=== PATIENT | male | born 1940 | race Asian ===

== ENCOUNTER 2022-12-24 13:01 | Inpatient (IN) | payer OTHER, MEDICAID ==
[~2022-12-24] VITALS: Ht 167.6 cm; Wt 45.4 kg
[~2022-12-24 13:01] MED LIST: ACET325T39 GT; AMIN30LI51 GT; AMLO5TAB4 GT; APIX2.5T GT; ASCO500S10 GT; CHLO118M PO; DIGO125T20 GT; FERR220S5 GT; HYDR-3919 GT; HYDR-4037 GT; IPRA3AMP9 INH; LACTIN GT; LANS30CA53 GT; LORA-259 GT; METO25TA6 GT; MIDO10TA6 GT; MULT9LIQ6 GT; ONDA4TAB5 GT; PYRI-7 GT; RIFA300C9 GT; VERA40TA5 GT; ZINC220T4 GT; [UNRECOGNIZED DRUG - CODE] GT
[2022-12-24 13:05] VITALS: BP_SYST 72
[2022-12-24] MEDS ORDERED: NACL 0.9% 2,000 ML IV SCH (13:15)
[2022-12-24] MEDS ORDERED: PANTOPRAZOLE SODIUM 40 MG/VIAL (PROTONIX) IVP ONE (13:15)
[2022-12-24] MEDS ORDERED: D10W 250 ML IV ONE (13:30)
[2022-12-24 14:00] LABS: BASOPHILS % (AUTO) 0.6 % (0.0-2.0); EOSINOPHILS # (AUTO) 0.5 K/uL (0.0-0.4); EOSINOPHILS % (AUTO) 8.3 % (0.0-4.0); HEMATOCRIT 27.1 % (36-54); HEMOGLOBIN 9.7 g/dL (14.0-18.0); LYMPHOCYTES # (AUTO) 1.7 K/uL (1.0-5.5); LYMPHOCYTES % (AUTO) 29.3 % (20.5-51.5); MEAN CORPUSCULAR HEMOGLOBIN 31 pg (27-31); MEAN CORPUSCULAR HGB CONC 36 % (32-36); MEAN CORPUSCULAR VOLUME 87 fL (79.0-98.0); MONOCYTES # (AUTO) 0.4 K/uL (0.0-1.0); MONOCYTES % (AUTO) 7.6 % (1.7-9.3); NEUTROPHILS # (AUTO) 3.1 K/uL (1.8-7.7); NEUTROPHILS % (AUTO) 54.2 % (40.0-70.0); PLATELET COUNT (AUTO) 228 K/uL (130-430); RED BLOOD CELL COUNT(AUTO) 3.13 MIL/uL (4.2-6.2); RED CELL DISTRIBUTION WIDTH 16.1 % (9.0-15.0); WHITE BLOOD COUNT (AUTO) 5.8 K/uL (4.8-10.8)
[2022-12-24 14:18] LABS: ALANINE AMINOTRANSFERASE 19 U/L (12-78); ALBUMIN 1.3 g/dL (3.4-4.8); ANION GAP -1 (5-15); ASPARTATE AMINOTRANSFERASE 37 U/L (10-37); CALCIUM 8.1 mg/dL (8.4-11.0); CHLORIDE 89 mmol/L (98-107); CREATININE 0.84 mg/dL (0.55-1.30); GLUCOSE 70 mg/dL (70-99); TOTAL BILIRUBIN 0.2 mg/dL (0.0-1.0); UREA NITROGEN, BLOOD 24 mg/dL (8-21)
[2022-12-24 14:35] LABS: INR 1.1 (0.80-1.20); PROTHROMBIN TIME 11.2 SECS (9.5-12.5)
[2022-12-24 14:55] LABS: BILIRUBIN,URINE NEGATIVE (NEGATIVE); BLOOD, URINE 2+ (NEGATIVE); COLOR,URINE YELLOW (YELLOW); GLUCOSE,URINE NEGATIVE (NEGATIVE); KETONES,URINE TRACE (NEGATIVE); LEUKOCYTE ESTERASE ,URINE 2+ (NEGATIVE); NITRITE, URINE NEGATIVE (NEGATIVE); PH,URINE 6.5 (5.0-8.0); PROTEIN URINE 2+ (NEGATIVE); UROBILINOGEN,URINE 0.2 (0.2-1.0)
[2022-12-24 14:58] LABS: CLARITY/URINE HAZY (CLEAR)
[2022-12-24] MEDS ORDERED: ONDANSETRON HCL 4 MG/2 ML VIAL IVP ONE (15:00)
[2022-12-24 15:05] LABS: BACTERIA,URINE MODERATE /HPF (None Seen)
[2022-12-24 15:06] LABS: MUCUS,URINE 1+ /LPF (None Seen)
[2022-12-24] MEDS ORDERED: VANCOMYCIN HCL 1,000 MG in NS 250 ML IV ONE (15:30)
[2022-12-24] MEDS ORDERED: cefTRIAXone 1 GM in D5W 50 ML IV ONE (15:30)
[2022-12-24] MEDS ORDERED: VANCOMYCIN HCL 1000 MG/VIAL IV ONE (15:38)
[2022-12-24] MEDS ORDERED: cefTRIAXone 1 GM VIAL ONE (15:38)
[2022-12-24] MEDS ORDERED: POTASSIUM CHLORIDE 40 MEQ in NS 250 ML IV ONE (16:45)
[2022-12-24] MEDS ORDERED: POTASSIUM CHLORIDE 40 MEQ in D5W 250 ML IV ONE (16:45)
[2022-12-24] MEDS ORDERED: POTASSIUM CHLORIDE 20 MEQ in NACL 0.9% 1,000 ML IV SCH (19:45)
[2022-12-24] MEDS ORDERED: ONDANSETRON HCL 4 MG/2 ML VIAL IVP PRN (19:45)
[2022-12-24] MEDS ORDERED: PIPERACILLIN/TAZOBACTAM 4.5 GM/VIAL (ZOSYN) IV ONE (21:44)
[2022-12-24] MEDS: PANTOPRAZOLE SODIUM 40 MG/VIAL (PROTONIX) IVP SCH (21:45)
[2022-12-24] MEDS: PIPERACILLIN/TAZO 4.5GM/DEX-IS 100 ML IV SCH (21:46)
[2022-12-24] MEDS ORDERED: [UNRECOGNIZED DRUG - CODE] GT (22:48)
[2022-12-24] MEDS ORDERED: ZINC500P17 GT (22:48)
[2022-12-24] MEDS ORDERED: AMLO5TAB4 PO (22:48)
[2022-12-24] MEDS ORDERED: RIFA150C7 GT (22:48)
[2022-12-24] MEDS ORDERED: CHLORHEXIDINE PO (22:48)
[2022-12-24] MEDS ORDERED: HYDR-4037 GT (22:48)
[2022-12-24] MEDS ORDERED: MULT-1117 GT (22:48)
[2022-12-24] MEDS ORDERED: TYLL650 PO ×2 (22:48)
[2022-12-24] MEDS ORDERED: GLUC1VIA14 IM (22:48)
[2022-12-24] MEDS ORDERED: [UNRECOGNIZED DRUG - CODE] GT (22:48)
[2022-12-24] MEDS ORDERED: Fluconazole IV (22:48)
[2022-12-24] MEDS ORDERED: CEFT2PIG5 IV (22:48)
[2022-12-24] MEDS ORDERED: REGL10 GT (22:48)
[2022-12-24] MEDS ORDERED: PANT40SU2 GT (22:48)
[2022-12-24] MEDS ORDERED: INSU100V46 SQ (22:48)
[2022-12-24] MEDS ORDERED: ONDA-8 GT (22:48)
[2022-12-24] MEDS ORDERED: LEVA1.2527 NEB ×2 (22:48)
[2022-12-24] MEDS ORDERED: ASCO500T20 GT (22:48)
[2022-12-24] MEDS ORDERED: FER300L GT (22:48)
[2022-12-24] MEDS ORDERED: ATROVENT 0.02% (22:53)
[2022-12-24] MEDS ORDERED: ATROVENT 0.02% INH (22:53)
[2022-12-25] VITALS (8 sets, daily range): BP systolic 125–151
[2022-12-25] MEDS ORDERED: KCL 20 mEq in NS 1000 mL 1,000 ML IV ONE (00:36)
[2022-12-25] MEDS ORDERED: PIPERACILLIN/TAZOBACTAM 4.5 GM/VIAL (ZOSYN) IV ONE (00:36)
[2022-12-25] MEDS ORDERED: D5W 1,000 ML IV PRN (01:15)
[2022-12-25] MEDS ORDERED: GLUCOSE (DEXTROSE) ORAL GEL -Adults PO PRN (01:15)
[2022-12-25] MEDS ORDERED: DEXTROSE 50% JECT 50 ML DISP.SYRIN ONE (01:20)
[2022-12-25] MEDS: DEXTROSE 50% JECT 50 ML DISP.SYRIN IVP PRN ×2 (01:24→07:06)
[2022-12-25] MEDS: PIPERACILLIN/TAZO 4.5GM/DEX-IS 100 ML IV SCH ×3 (06:58→21:30)
[2022-12-25 08:10] LABS: EOSINOPHILS # (AUTO) 0.6 K/uL (0.0-0.4); EOSINOPHILS % (AUTO) 13.9 % (0.0-4.0); HEMATOCRIT 23.5 % (36-54); HEMOGLOBIN 8.2 g/dL (14.0-18.0); LYMPHOCYTES # (AUTO) 1.6 K/uL (1.0-5.5); LYMPHOCYTES % (AUTO) 34.1 % (20.5-51.5); MEAN CORPUSCULAR HEMOGLOBIN 30 pg (27-31); MEAN CORPUSCULAR HGB CONC 35 % (32-36); MEAN CORPUSCULAR VOLUME 87 fL (79.0-98.0); MONOCYTES # (AUTO) 0.3 K/uL (0.0-1.0); MONOCYTES % (AUTO) 6.7 % (1.7-9.3); NEUTROPHILS % (AUTO) 44.3 % (40.0-70.0); PLATELET COUNT (AUTO) 171 K/uL (130-430); RED BLOOD CELL COUNT(AUTO) 2.69 MIL/uL (4.2-6.2); RED CELL DISTRIBUTION WIDTH 15.9 % (9.0-15.0); WHITE BLOOD COUNT (AUTO) 4.6 K/uL (4.8-10.8)
[2022-12-25 08:14] LABS: ALANINE AMINOTRANSFERASE 16 U/L (12-78); ALBUMIN 1.2 g/dL (3.4-4.8); ANION GAP 3 (5-15); ASPARTATE AMINOTRANSFERASE 34 U/L (10-37); CALCIUM 7.8 mg/dL (8.4-11.0); CHLORIDE 94 mmol/L (98-107); CREATININE 0.72 mg/dL (0.55-1.30); GLUCOSE 59 mg/dL (70-99); TOTAL BILIRUBIN 0.2 mg/dL (0.0-1.0); UREA NITROGEN, BLOOD 18 mg/dL (8-21)
[2022-12-25] MEDS: PANTOPRAZOLE SODIUM 40 MG/VIAL (PROTONIX) IVP SCH ×2 (08:29→21:30)
[2022-12-25] MEDS: D5W 1,000 ML IV SCH (08:29)
[2022-12-25] MEDS ORDERED: IPRATROPIUM/ALBUTEROL SULFATE 3 ML AMPUL.NEB (DUONEB) INH SCH (11:00)
[2022-12-25] MEDS: metroNIDAZOLE 250 mg/NS 50 ML IV SCH ×2 (13:58→23:10)
[2022-12-25] MEDS ORDERED: ACETAMINOPHEN 650 MG/20.3 ML UDC GT PRN (22:00)
[2022-12-25] MEDS: LACTOBACILLUS RHAMNOSUS GG 1 CAP CAPSULE PO SCH (22:21)
[2022-12-26] VITALS: BP_SYST 112
[2022-12-26 01:44] VITALS: BP_SYST 136
[2022-12-26] MEDS: D5W 1,000 ML IV SCH ×3 (04:30→22:44)
[2022-12-26] MEDS: PIPERACILLIN/TAZO 4.5GM/DEX-IS 100 ML IV SCH ×3 (05:20→21:35)
[2022-12-26] MEDS: metroNIDAZOLE 250 mg/NS 50 ML IV SCH ×3 (06:33→22:43)
[2022-12-26 09:30] VITALS: BP_SYST 129
[2022-12-26] MEDS: PANTOPRAZOLE SODIUM 40 MG/VIAL (PROTONIX) IVP SCH ×2 (09:33→21:36)
[2022-12-26] MEDS: LACTOBACILLUS RHAMNOSUS GG 1 CAP CAPSULE PO SCH ×2 (09:33→21:36)
[2022-12-26 11:02] VITALS: BP_SYST 144
[2022-12-26 17:03] VITALS: BP_SYST 137
[2022-12-26 20:00] VITALS: BP_SYST 137
[2022-12-27 00:50] VITALS: BP_SYST 129
[2022-12-27] MEDS: PIPERACILLIN/TAZO 4.5GM/DEX-IS 100 ML IV SCH ×2 (05:08→13:50)
[2022-12-27] MEDS: metroNIDAZOLE 250 mg/NS 50 ML IV SCH ×2 (06:01→13:51)
[2022-12-27] MEDS: LACTOBACILLUS RHAMNOSUS GG 1 CAP CAPSULE PO SCH ×2 (08:24→22:11)
[2022-12-27] MEDS: PANTOPRAZOLE SODIUM 40 MG/VIAL (PROTONIX) IVP SCH ×2 (08:24→22:11)
[2022-12-27 08:54] VITALS: BP_SYST 120
[2022-12-27 13:06] VITALS: BP_SYST 129
[2022-12-27 17:13] VITALS: BP_SYST 130
[2022-12-27] MEDS: D5W 1,000 ML IV SCH (17:42)
[2022-12-27 20:01] VITALS: BP_SYST 111
[2022-12-27 20:43] VITALS: BP_SYST 111
[2022-12-27] MEDS: CHOLESTYRAMINE/SUCROSE 4 GM/PACKET PO SCH (22:12)
[2022-12-27] MEDS: metroNIDAZOLE 500 MG TABLET PO SCH (23:08)
[2022-12-28 00:43] VITALS: BP_SYST 107
[2022-12-28 08:00] VITALS: BP_SYST 133
[2022-12-28] MEDS: LACTOBACILLUS RHAMNOSUS GG 1 CAP CAPSULE PO SCH ×2 (09:00→22:44)
[2022-12-28] MEDS: PANTOPRAZOLE SODIUM 40 MG/VIAL (PROTONIX) IVP SCH ×2 (09:09→22:44)
[2022-12-28] MEDS ORDERED: LIPASE/PROTEASE/AMYLASE 1 CAP PO PRN (10:30)
[2022-12-28] MEDS ORDERED: SODIUM BICARBONATE 0.5 MEQ/ML VIAL INJ ONE ×2 (11:15→11:45)
[2022-12-28 11:45] VITALS: BP_SYST 148
[2022-12-28 12:00] VITALS: BP_SYST 148
[2022-12-28] MEDS: D5W 1,000 ML IV SCH ×2 (12:59→22:59)
[2022-12-28] MEDS: metroNIDAZOLE 500 MG TABLET PO SCH ×2 (15:49→22:44)
[2022-12-28] MEDS: levoFLOXacin 250 MG TABLET PO SCH (15:49)
[2022-12-28] MEDS: CHOLESTYRAMINE/SUCROSE 4 GM/PACKET PO SCH ×2 (15:52→22:58)
[2022-12-28] MEDS: BALSAM PERU/CASTOR OIL 56.7 GM OINT...G. TP SCH (15:53)
[2022-12-28 16:00] VITALS: BP_SYST 146
[2022-12-28 19:59] VITALS: BP_SYST 137
[2022-12-29] VITALS (7 sets, daily range): BP systolic 119–153
[2022-12-29] MEDS: metroNIDAZOLE 500 MG TABLET PO SCH ×2 (06:53→14:48)
[2022-12-29] MEDS: LACTOBACILLUS RHAMNOSUS GG 1 CAP CAPSULE PO SCH (08:30)
[2022-12-29] MEDS: CHOLESTYRAMINE/SUCROSE 4 GM/PACKET PO SCH ×2 (08:30→14:48)
[2022-12-29] MEDS: PANTOPRAZOLE SODIUM 40 MG/VIAL (PROTONIX) IVP SCH (08:30)
[2022-12-29] MEDS: BALSAM PERU/CASTOR OIL 56.7 GM OINT...G. TP SCH (08:31)
[2022-12-29] MEDS: levoFLOXacin 250 MG TABLET PO SCH (11:13)
[2022-12-29] MEDS: D5W 1,000 ML IV SCH (12:36)
== END 2022-12-29 21:30 | DRG 870 ==
LOC: SED 13:01 → STU 19:42
PROVIDERS: ADMIT Family Medicine; ATTEND Family Medicine
PROC: 5A1955Z Respiratory Ventilation, Greater than 96 Consecutive Hours (ICD-10-PCS; principal; 2022-12-24)
DX: A41.9 Sepsis, unspecified organism (principal); E43 Unspecified severe protein-calorie malnutrition; J18.9 Pneumonia, unspecified organism; J96.20 Acute and chronic respiratory failure, unspecified whether with hypoxia or hypercapnia; N39.0 Urinary tract infection, site not specified; A15.0 Tuberculosis of lung; K92.2 Gastrointestinal hemorrhage, unspecified; Z68.1 Body mass index [BMI] 19.9 or less, adult; Z99.11 Dependence on respirator [ventilator] status; I10 Essential (primary) hypertension; Z20.822 Contact with and (suspected) exposure to COVID-19; J43.9 Emphysema, unspecified; B37.9 Candidiasis, unspecified; I48.91 Unspecified atrial fibrillation; R13.10 Dysphagia, unspecified; Z74.01 Bed confinement status; Z86.73 Personal history of transient ischemic attack (TIA), and cerebral infarction without residual deficits; Z93.0 Tracheostomy status
CPT/HCPCS: 36415; 36600; 71250-TC; 76376; 80053; 81000; 82803-TC; 83605; 84484; 85025; 85610-TC; 85730-TC; 86886; 86900; 86901; 87040; 87070-TC; 87081; 87086; 87101; 87205-TC; 87230-TC; 93005; 94002; 94003; 94640; 94760; 96361; 96365; 96366; 96367; 99285; C9113; G0378; J0696; J2405; J2543; J3370; J3480; J3490; J7030; J7050; J7060